=== PATIENT | female | born 1980 | race Caucasian/White ===

== ENCOUNTER → 2016-11-16 | Outpatient (CLI) | payer OTHER ==
--- NOTE | 2016-11-16 10:35 | US ---
November 16, 2016 Dear Michelle Turner NP, Thank you for allowing us to see your patient regarding anatomy. As you know she is a 36 year-old gr avida 2, para 0010. Her due date is 04/08/17 which is based on . Her current gestational age base d on this dating is 19 weeks 2 days. She had normal NIPT. Number of fetuses: 1 Placental location: posterior covering the os and slightly over this consistent with PREVIA Cord Insertion: Central presentation: vertex Cervix: 4.8 cm MVP: 5.8 cm The adnexa were evaluated. No pathology was seen. Right ovary not seen Left ovary not seen Measurements: Biparietal diameter: 48 mm 20 weeks, 4 days Head circumference: 168 mm 19 weeks, 4 days Abdominal circumference: 142 mm 19 weeks, 4 days Femur length: 30 mm 19 weeks, 3 days Humerus length: 30 mm 20 weeks, 1 days Transcerebellar diameter: 20 mm 19 weeks, 4 days Average ultrasound age: 19 weeks, 6 days Estimated weight: 296 gm weight percentile: 58 % ANATOMY Upper extremities: Normal Lower extremities: Normal Supratentorial brain: Normal Lateral ventricle: 5.5 mm Posterior fossa: Normal Cisterna Magna: 3.8 mm Spine: Normal Nuchal fold: 3.6 mm Face: Normal nose, lip, profile, alveolar ridge Heart: Normal rate, rhythm, axis, 4 chamber view, LVOT, RVOT, IVS AA view was suboptimal Stomach: Normal Diaphragm Normal Umbilical cord insertion: Normal Right kidney: Normal Left kidney: Normal Bladder: Normal Number of cord vessels: Three. Impression: This is a 36 year-old, 2, para 0010 at 19 weeks, 2 days gestation. 1. SIUP with biometry cw gestational age of 19 weeks. NL MVP. No anatomic abnormalities noted. 2. Second trimester previa- I reviewed that we should reassess this finding at 24 weeks. At this ti me, I did not place any restrictions but did review vaginal bleeding precautions. We discussed that if this persists at 24 weeks, pelvic rest and travel restrictions will be recommended. We reviewed th at if it does not resolve, delivery by is recommended no later than 37 weeks. Thank you for allowing me to see your patient. Approximately 15 minutes was spent with the patient a nd 15 was spent discussing her issues. Luz Slaughter MD Diagnosis Division of Maternal Medicine Department of Obstetrics and Gynecology [facility]
--- NOTE | 2016-11-16 18:17 | US ---
Second Trimester Obstetrical Sonography Clinical History: 36-year-old female presenting for routine anatomic screening and biometry. Technique: A curvilinear 5 MHz transducer was used to sonographically evaluate the fetus and the tess centa. M-mode Doppler was used. Supplementary endovaginal pelvic sonography of the maternal cervix an d positioning of the placenta was performed with color Doppler utilized. Cine clips were stored on [facility]. Dr. Luz Slaughter was present. Comparison Study: First trimester obstetrical sonography, dated October 03, 2016. LMP: July 04, 2016, indicating an age of 19 weeks 2 days, and an estimated date of delivery of April 10, 2017. Findings: Again, there is a single viable intrauterine gestation, with the fetus cephalic in present ation. The placenta is posteriorly-situated, although there is now placenta previa. The maternal cerv ical length is normal, measuring 4.8 cm. The amniotic fluid volume is appropriate with a maximal vert ical pocket of 5.8 cm. The heart rate is 152 beats per minute. There is a three-vessel cord wit h a normal central cord insertion. The maternal ovaries are not identified. A anatomic survey reveals a normal appearance to the supra- and infratentorial structures. The lateral ventricular diameter is 5.5 mm, the cisterna magna is 3.8 mm, and the nuchal fold is 3.6 mm. The spine appears normal. The nasal-labial anatomy and the alveolar ridge are normal. There is a four-chambered heart, with right and left ventricular outflow tracts and interventricular septum. T he diaphragm is intact. The stomach, right and left kidneys, urinary bladder, and upper and lower ext remities are identified. biometry is as follows: The biparietal diameter is 48 mm, corresponding to an age of 20 weeks 4 days +/- 1 week 6 days, which is at the 90th percentile. The head circumference is 168 mm, corresponding to an age of 19 weeks 4 days +/- 1 week 4 days, which is at the 53rd percentile. The abdominal circumference is 142 mm, corresponding to an age of 19 weeks 4 days +/- 2 weeks 1 day, which is at the 55th percentile. The femur length is 30 mm, corresponding to an age of 19 weeks 3 days +/- 1 week 6 days, which is at the 44th percentile. The humeral length is 30 mm, corresponding to an age of 20 weeks 1 day, and the transcerebellar diame ter is 20 mm, corresponding to an age of 19 weeks 4 days +/- 1 week 0 days, for a composite gestation al age of 19 weeks 6 days, which is concordant with menstrual dating and demonstrating appropriate in terval growth since the previous study. The estimated weight is 296 grams +/- 43 grams, which is 10 ounces +/- 2 ounces, which is at e 58th percentile. The head circumference to abdominal circumference ratio is normal, measuring 1.19. The femur length t o biparietal diameter ratio is 63%, and the femur length to abdominal circumference ratio is 21%. Impression: There is a single viable intrauterine gestation with development of placenta previa, but otherwise no overt structural anomaly, having biometry concordant with menstrual dating and al so demonstrating appropriate interval growth since October 03, 2016. The amniotic fluid volume is ap propriate. Recommendation: Reassessment of the second trimester placenta previa at the 24-week gestational age. Please also refer to Dr. Slaughter's separate assessments and specific recommendations for future follow up.
== END ==
LOC: FIMAGING 08:12
PROVIDERS: ATTEND Midwife
DX: O44.22 Partial placenta previa NOS or without hemorrhage, second trimester (principal); Z3A.19 19 weeks gestation of pregnancy

== ENCOUNTER → 2016-12-16 | Outpatient (CLI) | payer OTHER ==
--- NOTE | 2016-12-16 10:30 | US ---
December 16, 2016 Dear Ms. Kasandra Squires, Thank you for requesting consultation and a follow up ultrasound for your patient, Mrs. Elza hanna. As you know, Emily is a 36 year old G 2, P 0010 . Her due date is 04/08/17 by LMP and 6 week ultrasound. Her current gestational age based on this dating is is 23 weeks 6 days. She is se en today for a follow up assessment of growth and to evaluate the placenta secondary to previa. She did report spotting after intercourse within this past week. No other bleeding or pain noted. ULTRASOUND Number of fetuses: 1 Placental location: Persistent posterior placenta previa with a small portion of the placenta extend ing over the cervix os. There is some fluid in the cervical canal which may be mucous or old blood. presentation: Cephalic Heart Rate: 143 bpm Cervix: 4.2 cm viewed transvaginally. There is no evidence of cervical insufficiency. Maximum Vertical Pocket: 7.1 cm Measurements: Biparietal diameter: 67 mm 25 weeks, 0 days Head circumference: 226 mm 24 weeks, 5 days Abdominal circumference: 209 mm 25 weeks, 4 days Femur length: 43 mm 24 weeks, 0 days Humerus length: 41 mm 25 weeks, 1 days Transcerebellar diameter: 28 mm 24 weeks, 5 days Average age by ultrasound: 24 weeks, 6 days Estimated weight: 739 gm weight percentile: 85 % ANATOMY anatomy was previously assessed. Today the following structures were visualized and appeared n ormal: Lateral ventricle, cavum septum pellucidum, cerebellum, profile, four-chamber view of t he heart, aortic arch, stomach, bilateral kidneys, bladder, and views of the lip and nose area. IMPRESSION: 1. Intrauterine at 23 weeks, 6 days; NINO of 04/08/17. 2. growth is appropriate size for dates. 3. anatomy was previously assessed and today's ultrasound continues to provide reassurance of normal appearing anatomy. 4. Normal cervical length at 4.2 cm 5. Posterior placenta previa with episode of spotting after intercourse RECOMMENDATIONS: I was pleased to review today's ultrasound with your patient. I reassured her that growth is normal at the 85 %ile for this gestational age. The amniotic fluid volume is normal. We performed a review of the anatomy which was reassuring in that no overt abnormalities were noted. A transvaginal ultrasound was performed to better evaluate the placenta and cervix. The cervix is lo ng at 4.2 cm without evidence of insufficiency. There is some fluid in the cervical canal which may be old blood or the typical cervical mucous. The placenta remains a previa in the second trimester. Given her history of bleeding, I restricted intercourse and recommended pelvic rest. She may remain active, but limit weight bearing/Valsalva activities. I recommend: 1. Follow up between 30-32 weeks for growth and placenta reevaluation. Thank you for allowing us the opportunity to evaluate your patient. Should you have any further ques tions or concerns please do not hesitate to contact me. Approximately 15 minutes were spent with the patient and 10 minutes were spent in face to face consu ltation. Alberta Landers MD Staff Nurse Maternal Medicine Diagnosis Department of Obstetrics & Gynecology [facility], [place]
--- NOTE | 2016-12-16 11:14 | US ---
Follow Up Obstetrical Sonography Clinical History: 36-year-old female with a prior history of placenta previa and some recent post-coi ravinder spotting. Also assess growth parameters. Technique: A curvilinear 5 MHz transducer was used to sonographically evaluate the fetus and placenta . M-mode Doppler is used. Dr. Alberta Landers is present. Supplementary endovaginal pelvic sonography of the maternal cervix was also performed. A cine clip through the four-chambered heart was acquired. Comparison Study: Obstetrical sonography, dated November 16, 2016. LMP: July 02, 2016, indicating an age of 23 weeks 6 days, and an estimated date of delivery of April 08, 2017. Findings: Again, there is a single viable intrauterine gestation. The fetus is vertex in presentation . The amniotic fluid volume is appropriate, with a maximal vertical pocket of 7.1 cm. The heart rate is 143 bpm. There is a persistent placenta previa seen posteriorly with extension over the cerv ical os, and the maternal cervical length is 4.2 cm, measured endovaginally. There is a small amount of complex fluid seen within the endocervical canal. A anatomic survey has been performed in the past. On today's study, the visualized supra- and i nfratentorial structures are normal. The cisterna magna is 4.1 mm and the lateral ventricular diamete r is 4.7 mm. The sagittal facial profile is normal. A 4 chambered heart, interventricular septum, lef t ventricular outflow tract, three-vessel view, and aortic arch appear normal. The stomach, right and left kidneys, and urinary bladder are seen. biometry is as follows: The biparietal diameter is 61 mm, corresponding to an age of 25 weeks 0 days +/- 2 weeks 2 days, whic h is at the 82nd percentile. The head circumference is 226 mm, corresponding to an age of 24 weeks 5 days +/- 2 weeks 1 day, which is at the 63rd percentile. The abdominal circumference is 209 mm corresponding to an age of 25 weeks 4 days +/- 2 weeks 2 days, which is at the 87th percentile. The femur length is 43 mm corresponding to an age of 24 weeks 0 days +/- 2 weeks 1 day, which is at t he 41st percentile. The humeral length is 41 mm corresponding to an age of 25 weeks 1 day, and the transcerebellar diamet er is 28 mm corresponding to an age of 24 weeks 5 days +/- 1 week 1 day for a composite gestational a ge of 24 weeks 6 days. The estimated weight is 739 g +/- 108 g, which is 1 lb. 10 oz. +/- 4 oun joseline, which is at the 85th percentile. The head circumference to abdominal circumference ratio is normal, measuring 1.08. The femur length t o biparietal diameter ratio is 70%, and the femur length to abdominal circumference ratio is 20%. Impression: There is a single viable intrauterine gestation with an appropriate interval growth since November 16, 2016, and evidence of a persistent placenta previa. The amniotic fluid volume is appropri ate. Recommendation: Follow up sonography between 30 and 32 weeks gestation. Please also refer to Dr. Landers's separate assessments and specific recommendations.
== END ==
LOC: FIMAGING 09:12
PROVIDERS: ATTEND Midwife
DX: O44.02 Complete placenta previa NOS or without hemorrhage, second trimester (principal); Z3A.23 23 weeks gestation of pregnancy

== ENCOUNTER → 2017-02-01 | Outpatient (CLI) | payer OTHER | LOC: FIMAGING 09:04 | PROVIDERS: ATTEND Midwife | DX: O44.03 Complete placenta previa NOS or without hemorrhage, third trimester (principal); Z3A.30 30 weeks gestation of pregnancy ==

== ENCOUNTER 2017-02-06 09:50 | Inpatient (IN) | payer OTHER ==
[2017-02-06] MEDS ORDERED: EPSOM SALT 454 GM TP PRN (10:22)
[2017-02-06] MEDS ORDERED: MAGNESIUM SULF IV ONE (10:22)
[2017-02-06] MEDS ORDERED: OXYTOCIN/RINGERS LACTATE 1,000 ML IV PRN (10:22)
[2017-02-06] MEDS ORDERED: LR 1,000 ML IV PRN (10:22)
[2017-02-06] MEDS ORDERED: BETAMETHASONE IM SYRINGE IM ONE ×2 (10:22→10:30)
[2017-02-06] MEDS ORDERED: OLIVE OIL 118 ML BTL MISC PRN (10:22)
[2017-02-06] MEDS ORDERED: CALCIUM GLUC 10% 1 GM/10 ML VIAL IVP PRN (10:22)
[2017-02-06] MEDS ORDERED: TERBUTALINE SULFATE 1 MG/ML VIAL IV PRN (10:22)
[2017-02-06] MEDS ORDERED: WATER IV ONE (10:22)
[2017-02-06] MEDS ORDERED: LIDOCAINE 1% 30 ML SDV SC PRN (10:22)
[2017-02-06] MEDS ORDERED: LR 1,000 ML IV SCH (10:30)
--- NOTE | 2017-02-06 10:31 | PDGENHP ---
History and Physical - Chief Complaint vaginal bleeding - History of Present Illness Pt is a healthy 36 yo at 31w2d by LMP and 6 week US with NINO of . Prior SAB at 8 weeks, no D&C completed. Pt has a known posterior placenta previa, confirmed on most recent ultrasound at 30w4d by MFM. She called this morning with an episode of heavy vaginal bleeding lasting about 3-4 minutes, blood was gushing out while she was sitting on the toilet. No cramping or pain. No leaking fluid as far as she knows. Bleeding has slowed down now. Baby is active. Otherwise uncomplicated . This is the 2nd significant bleed of the : she had a heavier bleeding a few months ago, then spotting a few weeks ago. OB labs notable for Rh pos, antibody neg, GBS+ bacteriuria in 1st trimester, Rubella immune, RPR neg, HbSag Neg, HIV neg, GC/CT neg, 1 hr glucola = 91 s/p tdap and flu vaccines Has not received steroids for lung maturity this History Information - Allergies/Home Medication List Allergies/Adverse Reactions: aspirin Allergy (Verified 10/03/16 07:51) Home Medications: PO 10/03/16 [Last Taken Unknown] I have personally reviewed and updated: family history, medical history, social history, surgical history - Past Medical History no pertinent PMH - Surgical History Reports: no pertinent surgical hx - Family History Positive for: non-pertinent - Social History Smoking Status: Never smoked Alcohol Use: None Drug Use: None Additional social history: , Dmitri Review of Systems ROS: 10pt was reviewed & negative except for what was stated in HPI & below Physical Exam Physical Exam: Gen: alert, awake, NAD Resp: unlabored CV: reg rate Abd: gravid, soft, nontender Ext: no edema SSE: Cervix long/closed. Small amount of mucously dark blood in vault. No active bleeding. Vital signs: BP 117/70, pulse 94 heart rate: Baseline 140, moderate variability, + accels, no decels [place]: irritability, one contraction Bedside TAUS: Posterior previa No e/o abruption Normal fluid, DVP = 4.5 cm Vertex Lab Data & Imaging Review 02/06/17 10:45 Assessment & Plan Assessment: at 31w2d Rh positive Posterior placenta previa with VB#2 Currently hemodynamically stable, no active bleeding, status reassuring No evidence of labor, abruption, PPROM GBS+ UTI in 1st trim, other OB labs WNL Mild thrombocytopenia, no other signs of preeclampsia or DIC Plan: Admit to L&D IV placement, CBC, T&C x 2 units Continuous monitoring x 24 hours BMTZ for lung maturity, first dose now No evidence of need for emergent delivery, will not give magnesium for [employer]PER[employer] at this time. 500 cc LR bolus for uterine irritability, plan continuous toco Clear liquid diet for now, will advance to regular if remains stable No indication for antibiotics at this time Repeat CBC with platelets tomorrow AM. Will also get full chemistry panel s/p Tdap and flu vaccines Anesthesia and providers aware of patient's admission Recommend admission for 48-72 hours of no bleeding at a minimum Discussed indications for delivery: maternal (hemorrhage, signs of abruption, vital sign changes, ROM, labor) or evidence of distress. Delivery would be by for previa. Discussed risks including pain, infection, bleeding, transfusion, injury to other organs, implications for future pregnancies. Discussed goal of regional anesthesia but possibility of need for emergency C/S under general. All questions answered and she agrees to delivery if becomes indicated.
[2017-02-06 11:00] LABS: % IMMATURE GRANULYOCYTES 1.3 % (0.0-1.1); ABSOLUTE IMMATURE GRANULOCYTES 0.08 10^3/uL (0.00-0.10); ADD DIFF? NO; ADD MORPH? NO; ADD SCAN? NO; ATYPICAL LYMPHOCYTE FLAG 0 (0-99); FRAGMENT RBC FLAG 0 (0-99); HEMATOCRIT 34.8 % (38.0-47.0); HEMOGLOBIN 12.3 g/dL (12.6-16.3); LEFT SHIFT FLG 10 (0-99); LIPEMIA HEMOLYSIS FLAG 90 (0-99); MEAN CELL HEMOGLOBIN 30.6 pg (27.9-34.1); MEAN CELL HEMOGLOBIN CONCENTR. 35.3 g/dL (32.4-36.7); MEAN CELL VOLUME 86.6 fL (81.5-99.8); PLATELET CLUMPS FLAG 0 (0-99); PLATELET COUNT 149 10^3/uL (150-400); RED BLOOD CELL COUNT 4.02 10^6/uL (4.18-5.33); RED CELL DISTRIBUTION WIDTH 13.4 % (11.5-15.2)
--- NOTE | 2017-02-06 16:51 | SOAPPROG ---
SOAP Progress Note Assessment/Plan: Assessment: 31w2d with VB and previa Initially bleeding had slowed, now with slight uptick in bleeding, not heavy status remains reassuring Ongoing uterine irritability despite IV fluids No e/o cervical dilation, labor, abruption, mom is hemodynamically stable Plan: Ongoing continuous monitoring Given ongoing bleeding and uterine irritability, recommend to give IV magnesium for neuroprotection (6g bolus followed by 2g/hr x 12 hours). Reviewed with pt this is in the event she needs delivery and is for benefit. May also calm down uterus but that is not primary use. she agrees with plan. Side effects discussed. 02/06/17 16:48 02/06/17 16:52 Subjective: Pt feeling well. Denies any cramping or pain. Initially bleeding had slowed dramatically, now with a slight increase of BRB noted by patient and RN based on pad. Nothing like what happened this morning. No LOF. Objective: Laboratory Results 02/06/17 10:45 112/61, 93 Gen: alert, awake, NAD Abd: gravid, soft, nontender SSE: small amount of blood in vault, mix of bright red and darker blood. Cervix closed. Very slow ooze of bleeding noted. FHR baseline 140, mod [place], + accels, no decels [place]: irritability, intermittent contractions ICD10 Worksheet Patient Problems: Problems Problem Status Onset Placenta previa antepartum in third trimester Acute - ICD10 Problem Qualifiers (1) Placenta previa antepartum in third trimester
[2017-02-06] MEDS ORDERED: ONDANSETRON 4 MG/2 ML VIAL IVP PRN (16:54)
[2017-02-06] MEDS: MAGNESIUM SULF IV SCH ×3 (17:02→17:20)
[2017-02-06] MEDS: WATER IV SCH ×3 (17:02→17:20)
[2017-02-06] MEDS: Mag Sulf 500 ML IV SCH (17:30)
[2017-02-06] MEDS ORDERED: ACETAMINOPHEN 325 MG TAB PO PRN (23:27)
[2017-02-06] MEDS ORDERED: CALCIUM CARBONATE 500 MG CHEWABLE TAB PO PRN (23:28)
[2017-02-07] MEDS ORDERED: MAGNESIUM SULF 20 GM/500 ML BAG IV ONE (03:05)
[2017-02-07] MEDS: Mag Sulf 500 ML IV SCH (04:00)
[2017-02-07 06:01] LABS: % IMMATURE GRANULYOCYTES 1.2 % (0.0-1.1); ABSOLUTE IMMATURE GRANULOCYTES 0.15 10^3/uL (0.00-0.10); ADD DIFF? NO; ADD MORPH? NO; ADD SCAN? NO; ATYPICAL LYMPHOCYTE FLAG 0 (0-99); FRAGMENT RBC FLAG 0 (0-99); HEMATOCRIT 33.4 % (38.0-47.0); HEMOGLOBIN 11.4 g/dL (12.6-16.3); LEFT SHIFT FLG 0 (0-99); LIPEMIA HEMOLYSIS FLAG 90 (0-99); MEAN CELL HEMOGLOBIN 29.8 pg (27.9-34.1); MEAN CELL HEMOGLOBIN CONCENTR. 34.1 g/dL (32.4-36.7); MEAN CELL VOLUME 87.4 fL (81.5-99.8); MEAN PLATELET VOLUME 10.9 fL (8.7-11.7); PLATELET CLUMPS FLAG 0 (0-99); PLATELET COUNT 164 10^3/uL (150-400); RED BLOOD CELL COUNT 3.82 10^6/uL (4.18-5.33); RED CELL DISTRIBUTION WIDTH 13.4 % (11.5-15.2)
[2017-02-07 06:07] LABS: ALANINE AMINOTRANSFERASE 52 IU/L (9-52); ALBUMIN 3.4 g/dL (3.5-5.0); ALKALINE PHOSPHATASE 135 IU/L (38-126); ANION GAP 6 mEq/L (8-16); ASPARTATE AMINOTRANSFERASE 35 IU/L (14-46); BILIRUBIN,TOTAL 0.6 mg/dL (0.1-1.4); CALCIUM 7.5 mg/dL (8.5-10.4); CARBON DIOXIDE 21 mEq/l (22-31); CHLORIDE 105 mEq/L (97-110); CREATININE 0.5 mg/dL (0.6-1.0); GLOMERULAR FILTRATION RATE > 60; GLUCOSE 105 mg/dL (70-100); POTASSIUM 3.9 mEq/L (3.5-5.2); SODIUM 132 mEq/L (134-144); TOTAL PROTEIN 5.9 g/dL (6.3-8.2)
[2017-02-07] MEDS ORDERED: DOCUSATE SODIUM 100 MG CAP PO PRN (06:48)
--- NOTE | 2017-02-07 06:59 | SOAPPROG ---
SOAP Progress Note Assessment/Plan: Assessment: 31w3d with VB and previa Bleeding now stopped status remains reassuring Uterine irritability significantly improved Slight decrease in Hgb. Plts improved. No e/o cervical dilation, labor, abruption, mom is hemodynamically stable Plan: OK to stop continuous monitoring, plan NST TID as long as no bleeding Mag stopped after 12 hours Regular diet SLIV 2nd dose BMZ today Start iron and colace Obs until at least 48 hours no bleeding OK to walk around unit this AM, possibly outside this afternoon if remains stable 02/06/17 16:48 02/06/17 16:52 02/07/17 06:55 02/07/17 07:00 02/07/17 07:02 Subjective: Slept well. Not feeling any contractions or abdominal pain. Bleeding completely stopped, none since about 6:00 PM last night. Baby is a little less active than usual but still moving normally. Objective: Laboratory Results 02/07/17 05:35 02/07/17 05:35 113/59, 88, 99%, 36.9 Gen: NAD, awake, alert Resp: unlabored CV: reg rate Abd: gravid, soft, nontender Ext: no edema FHR baseline 130-140, mod [place], + accels, no decels [place]: mostly quiet overnight, occasional runs of irritability and contractions ICD10 Worksheet Patient Problems: Problems Problem Status Onset Placenta previa antepartum in third trimester Acute - ICD10 Problem Qualifiers (1) Placenta previa antepartum in third trimester
[2017-02-07] MEDS: FERROUS SULFATE 325 MG TAB PO SCH (09:10)
[2017-02-07] MEDS ORDERED: BETAMETHASONE IM SYRINGE IM ONE (11:00)
--- NOTE | 2017-02-07 18:28 | SOAPPROG ---
SOAP Progress Note Assessment/Plan: Assessment: 36 y.o. at 31 weeks with partial previa with spontaneous onset of vaginal bleeding. Patient has been on bedrest with decreased vaginal bleeding. Denies experiencing any cramping at this time. VSS- afebrile NST- reactive- CAT I Plan: Continue to keep patient as inpatient until no bleeding x 48 hours. Patient to remain on pelvic rest and modified bedrest. Second dose of betamethasone administered. Discussed extensively for patient to decrease her activity to short light walking and yoga. Patient is not to run or lift anything heavy. Discussed for patient not to travel outside the immediate area and patient verbalized understanding. 02/07/17 18:25 Subjective: Patient appears comfortable and in no immediate distress. Discussed patient's activity restrictions and patient verbalized understanding. VSS- afebrile. NST- reactive CAT I> Objective: Laboratory Results 02/07/17 05:35 02/07/17 05:35 - Time Spent With Patient Time Spent With Patient: 20 minutes - Pending Discharge Pending Discharge Within 48 Hours: Yes Pending Discharge Date: 02/09/17 Pending Discharge Time: 11:00 Physical Exam - Physical Exam General Appearance: WD/WN, alert, no apparent distress EENT: normal ENT inspection Neck: full range of motion, normal inspection Respiratory: lungs clear Cardiac/Chest: regular rate, rhythm Abdomen: non-tender, soft Pelvic Exam: deferred Rectal: deferred Back: Normal inspection Skin: normal color, warm/dry Extremities: normal range of motion, non-tender Neuro/Psych: alert, normal mood/affect, oriented x 3 ICD10 Worksheet Patient Problems: Problems Problem Status Onset Placenta previa antepartum in third trimester Acute
--- NOTE | 2017-02-08 09:04 | SOAPPROG ---
SOAP Progress Note Assessment/Plan: Assessment: 31w4d with VB and previa Bleeding now stopped x 36 hours status remains reassuring Uterine irritability significantly improved though not completely resolved Hgb stable No e/o cervical dilation, labor, abruption, mom is hemodynamically stable s/p BMZ and Mag Plan: NST TID as long as no bleeding Regular diet SLIV Iron and colace Modified bedrest Plan home tonight after 6:00 PM assuming no further bleeding. Discussed activity restrictions with pt and do not advise to travel outside area. She is aware if she has another bleed we would recommend admission until delivery Subjective: No bleeding overnight. Baby active. She is hoping to go home tonight. No cramping or pain. No LOF. Objective: Laboratory Results 02/07/17 05:35 02/07/17 05:35 Gen: NAD Resp:unlabored CV: reg rate Abd: gravid, soft,nontender Ext: no edema VSS, reviewed in tracevue FHR baseline 150, mod [place], + accel, no decel [place]: irritability, intermittent contraction (not felt by mom) ICD10 Worksheet Patient Problems: Problems Problem Status Onset Placenta previa antepartum in third trimester Acute - ICD10 Problem Qualifiers (1) Placenta previa antepartum in third trimester
[2017-02-08] MEDS: FERROUS SULFATE 325 MG TAB PO SCH (10:35)
--- NOTE | 2017-02-08 21:29 | GDS ---
[f rep st] DISCHARGE SUMMARY ADMISSION DIAGNOSIS: 31 weeks, 2 days gestation with known placenta previa and vaginal bleeding. DISCHARGE DIAGNOSIS: 31 weeks, 4 days gestation, vaginal bleeding resolved. CONSULTS: None. COMPLICATIONS: None. HOSPITAL SUMMARY: The patient is a 36-year-old G2, P0-0-1-0, who presented at 31 weeks, 2 days with vaginal bleeding in with known posterior placenta previa. The bleeding was spontaneous at home when she was using the bathroom. At the time of admission, she had ongoing bleeding that had slowed considerably. She was placed on the heart rate monitor and was found to have reassuring status. Betamethasone was administered for lung maturity as she had not yet received it in this . Her monitoring continued to be reassuring, however, her bleeding though light was ongoing and she had contractions and irritability noted on the tocometer, so the decision was made to proceed with IV magnesium, which was given for neuro protection. She received a 6 gram IV bolus followed by 2g/hr over the course of 12 hours and her uterine contractions and irritability improved and her bleeding stopped. She was taken off the magnesium and was continued to be monitored for 48 hours with no vaginal bleeding. She continued to have reassuring status and was not feeling any contractions, leaking, bleeding or any other worrisome signs. She was discharged in stable condition with strict instructions including pelvic rest and activity modification and to return to the hospital for any further bleeding. Of note, this was her second episode of vaginal bleeding this , so she is aware that a future vaginal bleed would mean that she would be observed as an inpatient for the remainder of the . Her is otherwise uncomplicated and notable only for GBS bacteruria in the first trimester. FOLLOWUP: Dr. Degroot in 1 week in the office as scheduled and repeat ultrasound in 2 weeks to re-evaluate for ongoing previa. DISCHARGE MEDICATIONS: She will continue her home medications which include vitamin, iron, DHA. LABS: Were notable for an admission hemoglobin of 12.3 which dropped on day of hospital 2 to 11.4. She had no further bleeding after that time. She will continue to take iron supplements. /[id number]/MODL MTDD
== END 2017-02-08 18:30 | disposition home or self-care (01) | DRG 781 ==
LOC: FLD 09:50 → OBSVTOIN 09:50
PROVIDERS: ADMIT Obstetrics & Gynecology; ATTEND Obstetrics & Gynecology
DX: O44.13 Complete placenta previa with hemorrhage, third trimester (principal); Z3A.31 31 weeks gestation of pregnancy
CPT/HCPCS: J0610; J0702; J3475

== ENCOUNTER 2017-02-17 20:05 | Inpatient (IN) | payer OTHER ==
[2017-02-17] MEDS ORDERED: ceFAZolin 2 GM/DEXTROSE 100 ML IV ONE (20:26)
[2017-02-17] MEDS ORDERED: LR 500 ML IV ONE (20:26)
[2017-02-17] MEDS ORDERED: EPSOM SALT 454 GM TP PRN (20:27)
[2017-02-17] MEDS ORDERED: OLIVE OIL 118 ML BTL MISC PRN (20:27)
[2017-02-17] MEDS ORDERED: LIDOCAINE 1% 30 ML SDV SC PRN (20:27)
[2017-02-17] MEDS ORDERED: OXYTOCIN/RINGERS LACTATE 1,000 ML IV PRN (20:27)
[2017-02-17] MEDS ORDERED: TERBUTALINE SULFATE 1 MG/ML VIAL IV PRN (20:27)
[2017-02-17] MEDS ORDERED: LR 1,000 ML IV PRN (20:27)
[2017-02-17] MEDS ORDERED: MISOPROSTOL 200 MCG TAB ONE (20:30)
[2017-02-17] MEDS ORDERED: ALBUMIN 5% 500 ML BOTTLE IV ONE (20:37)
[2017-02-17 20:42] LABS: % IMMATURE GRANULYOCYTES 1.4 % (0.0-1.1); ABSOLUTE IMMATURE GRANULOCYTES 0.14 10^3/uL (0.00-0.10); ADD DIFF? NO; ADD MORPH? NO; ADD SCAN? NO; ATYPICAL LYMPHOCYTE FLAG 10 (0-99); FRAGMENT RBC FLAG 0 (0-99); HEMATOCRIT 34.5 % (38.0-47.0); HEMOGLOBIN 11.6 g/dL (12.6-16.3); LEFT SHIFT FLG 10 (0-99); LIPEMIA HEMOLYSIS FLAG 80 (0-99); MEAN CELL HEMOGLOBIN 29.6 pg (27.9-34.1); MEAN CELL HEMOGLOBIN CONCENTR. 33.6 g/dL (32.4-36.7); MEAN PLATELET VOLUME 11.3 fL (8.7-11.7); PLATELET CLUMPS FLAG 20 (0-99); PLATELET COUNT 197 10^3/uL (150-400); RED BLOOD CELL COUNT 3.92 10^6/uL (4.18-5.33); RED CELL DISTRIBUTION WIDTH 13.9 % (11.5-15.2)
[2017-02-17] MEDS ORDERED: morphINE PF 5 MG/10 ML INJ ONE (20:51)
[2017-02-17] MEDS ORDERED: fentaNYL 100 MCG/2 ML INJ ONE (20:52)
[2017-02-17] MEDS ORDERED: MISOPROSTOL 200 MCG TAB PR ONE (21:03)
[2017-02-17] MEDS ORDERED: METHYLERGONOVINE MAL 0.2 MG/ML INJ IM ONE (21:03)
[2017-02-17] MEDS ORDERED: HEMABATE 250 MCG/1 ML AMP IM ONE (21:03)
--- NOTE | 2017-02-17 21:11 | GHP ---
[f rep st] PREOP HISTORY AND PHYSICAL DATE OF ADMISSION: 02/17/2017 CHIEF COMPLAINT: Heavy vaginal bleeding and syncope x2. HISTORY OF PRESENT ILLNESS: This is a 36-year-old, G1, P0, who is roughly 32 weeks gestation with k nown placenta previa, who presents with heavy vaginal bleeding that started approximately 1-2 hours ago. The patient is 32 and 6/7 weeks gestation. The patient has a known placenta previa. She has had 2 previous episodes of vaginal bleeding. Her last ultrasound was on . The fetus was paula uring at 1712 grams. She has received 2 doses of betamethasone. Upon presentation to the [facility], the patient was syncopal and hypotensive. PHYSICAL EXAMINATION: VITAL SIGNS: Her blood pressure was 81/55, pulse 88. GENERAL: She is uncom fortable with her contractions. Her abdomen is gravid. On speculum exam, she has approximately 200 EBL of clot and she is actively bleeding from her cervix. heart tones are in the 160s with m oderate variability, and she is ibis every 2 minutes. Her hematocrit at this point is 34%. Her discharge hematocrit on February 07 was 33%. I discussed with the patient my concern for her significant vaginal bleeding, her hypotension and he r contractions. I recommend proceeding to delivery via primary low transverse section for her hemorrhage and hypotension. We will repeat a CBC in the OR and discuss potential blood transfus ion of the patient. The patient's blood type is pending at this time. The patient understands thes e risks and agrees to the procedure. /[id number]/MODL
[2017-02-17] MEDS ORDERED: ONDANSETRON 4 MG/2 ML VIAL ONE (21:38)
[2017-02-17] MEDS ORDERED: OXYTOCIN 100 UNITS/10 ML VIAL ONE (21:39)
[2017-02-17] MEDS ORDERED: SIMETHICONE 80 MG TAB CHEW PO PRN (21:49)
[2017-02-17] MEDS ORDERED: ACETAMINOPHEN 325 MG TAB PO PRN (21:49)
[2017-02-17] MEDS ORDERED: PHENYLEPHRINE HCL 100 MCG/ML SYR ONE (21:51)
--- NOTE | 2017-02-17 21:55 | OBPROC ---
- Delivery Pre-op Diagnoses: IUP @ 32 /, hemorrhage, posterior previa Post-op Diagnoses: same Procedure: Primary, Low Transverse Surgeon: Tamika Garcia Hot Header Operator: Lesly Frost Anesthesiologist: Danie Ratliff Anesthesia: Spinal Complications: None Findings: viable male , blood clot of 50 ml at uterine incision, copious vaginal bleeding at time of surgery Specimen(s)/Path: Placenta EBL: 1500 ml (800 ml with surgery, 700 ml prior) - Toponas Info A Delivery Date: 02/17/17 Sex of Infant: Male
[2017-02-17] MEDS: LR 1,000 ML IV SCH ×2 (21:58→21:59)
[2017-02-17 22:27] LABS: CORD BLOOD PCO2 57.6 mmHg (37-60); PH ARTERIAL CORD BLOOD 7.25 (7.10-7.37)
[2017-02-17 22:30] LABS: PH VENOUS CORD BLOOD 7.28 (7.20-7.42)
--- NOTE | 2017-02-17 22:38 | GOP ---
[f rep st] OPERATIVE REPORT DATE OF OPERATION: 02/17/2017 SURGEON: Tamika Herzog MD ANESTHESIA: Spinal. PREOPERATIVE DIAGNOSIS: Intrauterine at 32 and 6/7 weeks' gestation with posterior placenta previa and hemorrhage. POSTOPERATIVE DIAGNOSIS: Intrauterine at 32 and 6/7 weeks' gestation with posterior placenta previa and hemorrhage. PROCEDURE PERFORMED: primary low transverse section FINDINGS: Viable male . Normal uterus, Fallopian tubes, and ovaries. ESTIMATED BLOOD LOSS: 1500 mL total with 700 mL loss prior to the surgery and 800 during surgery. INDICATIONS: The patient is a 36-year-old female, who had a known placenta previa and noticed vaginal bleeding. She has had 2 previous episodes of vaginal bleeding. Began to have heavy vaginal bleeding and cramping and presented to Labor and Delivery. At the time of presentation, the patient had probably lost approximately 500-600 mL of blood and lost another 100 mL of blood during preparation. Recommended the patient to proceed to primary section secondary to her active vaginal bleeding to which she agreed. DESCRIPTION OF PROCEDURE: The patient was taken to the operating room. She was prepped and draped in normal sterile fashion in the dorsal supine position with a leftward tilt. The patient received 2 g of Ancef. A surgical time-out was performed verifying the patient's name, date of , planned procedure, and site. A Pfannenstiel skin incision was made with a scalpel and carried through to the underlying fascia. The fascia was incised in the midline and extended laterally. The superior aspect of the fascia was grasped with a Susanne clamp. The rectus muscles were dissected off bluntly and with the Bovie cautery. The inferior aspect of the fascia was grasped with a Susanne clamp. The rectus muscles were dissected off bluntly and with the Bovie cautery. The peritoneum was identified and entered in bluntly. The peritoneum was divided. The vesicouterine peritoneum was incised with Metzenbaum scissors, and the bladder flap was created. The bladder blade was replaced. The uterus was incised with a scalpel, and the uterine incision extended laterally with the bandage scissors. The was delivered. The cord was clamped and cut. The infant was handed to the waiting nurse practitioner. Cord blood was obtained. Cord gases were obtained. The placenta was delivered spontaneously. The uterus was exteriorized and cleared of all clots and debris. The uterine incision was reapproximated with 0 Monocryl in a running, locked fashion in 2 layers. The gutters were cleared of all clots and debris. The uterus was returned to the abdomen. There was noted to be some bleeding at the aspect of the left uterine incision which was made hemostatic with 0 Vicryl. The subfascial spaces were inspected and noted to be hemostatic. The fascia was reapproximated with 0 Vicryl in a running fashion. The subcutaneous tissue was irrigated and closed with 3-0 Vicryl, and the skin was closed with 4- 0 Monocryl. All counts were correct x2.February 17, 2017 PROCEDURE PERFORMED: Primary low transverse section. SURGEON: Dr. Tamika Herzog. LOOPER OPERATOR: MADY Baires. COMPLICATIONS: None. OUTCOME: Stable to recovery room. /[id number]/MODL MTDD
[2017-02-17] MEDS ORDERED: PHENYLEPHRINE HCL 100 MCG/ML SYR IVP PRN (23:35)
[2017-02-17] MEDS ORDERED: MEPERIDINE 25 MG/ML SYR IVP PRN (23:35)
[2017-02-17] MEDS ORDERED: ONDANSETRON 4 MG/2 ML VIAL IVP PRN (23:35)
[2017-02-17] MEDS ORDERED: NALOXONE HCL 0.4 MG/ML INJ IVP PRN (23:35)
--- NOTE | 2017-02-17 23:42 | PREANESOB ---
Obstetric Pre-Anesthesia Info - General Info Proposed Procedure: Urgent C Section for bleeding placenta previa. : 3 Para: 0 WBD: 32 - Info Status: Premature Monitors: External FHR Baseline (bpm): 150 FHR Pattern: Reassuring - Labor Status Section History: Primary Indications for Current Section: Placenta Previa Labor Epidural: No Anesthesia ROS: No anesthesia. Allergies/Adverse Reactions: Allergy/AdvReac Type Severity Reaction Status Date / Time aspirin Allergy Verified 10/03/16 07:51 ibuprofen Allergy Verified 02/06/17 19:41 oyster extract Allergy Verified 02/06/17 19:42 Home Medications: Medication Instructions Recorded 1 tab PO DAILY 10/03/16 Dha 10 mg PO DAILY 02/06/17 IRON 25 mg PO EVERY OTHER DAY 02/06/17 Magnesium 200 mg PO DAILY 02/06/17 Vitamin B-12 1 tab PO DAILY 02/06/17 Vitamin D3 0.5 mg PO DAILY 02/06/17 Visit Medications: Generic Name Dose Route Start Last Admin Trade Name Freq PRN Reason Stop Dose Admin Acetaminophen 325 - 650 mg 02/17/17 21:49 Tylenol PO 08/16/17 21:48 Q3HRS PRN Pain, Mild Hydrocodone Bitart/Acetaminophen 1 - 2 tab 02/17/17 21:49 [place] 5/325 PO 02/27/17 21:48 Q4HRS PRN Pain, Moderate Diphenhydramine HCl 25 - 50 mg 02/17/17 23:35 Benadryl Injection IVP 08/16/17 23:34 Q6HRS PRN Itching Docusate Sodium 100 mg 02/17/17 21:49 Colace PO 08/16/17 21:48 BID PRN Constipation Lactated Ringer's 1,000 mls @ 125 mls/hr 02/17/17 20:30 02/17/17 21:59 Lr IV 08/16/17 20:29 1,000 mls CONT ARNOLD Administration Lactated Ringer's 1,000 mls @ 0 mls/hr 02/17/17 20:27 Lr IV 08/16/17 20:26 PRN PRN SEE PROTOCOL CONDITIONS Protocol Per Protocol Oxytocin/Lactated Ringer's 1,000 mls @ 150 mls/hr 02/17/17 20:27 Pitocin 20 Units/Lr (Premix) IV PRN PRN Post- bleeding Lidocaine HCl 30 ml 02/17/17 20:27 Lidocaine Hcl 1% SC 08/16/17 20:26 ONCE PRN Episiotomy Magnesium Sulfate 454 gm 02/17/17 20:27 Epsom Salt TP 08/16/17 20:26 PRN PRN perineal discomfort Meperidine HCl 12.5 - 25 mg 02/17/17 23:35 Demerol 25 Mg/Ml Syringe IVP 02/18/17 00:35 Q10M PRN shivering/rigors Naloxone HCl 0.4 mg 02/17/17 23:35 Narcan IVP 02/18/17 23:38 PRN PRN respiratory depression Woodbine Oil 118 ml 02/17/17 20:27 Sweet Oil MISC 08/16/17 20:26 ONCE PRN preneal massage Ondansetron HCl 4 mg 02/17/17 23:35 Zofran IVP 08/16/17 23:34 Q4HRS PRN Nausea/Vomiting, Can't Take PO Simethicone 80 mg 02/17/17 21:49 Mylicon PO 08/16/17 21:48 .TIDMEALS AND HS PRN Gas Terbutaline Sulfate 0.25 mg 02/17/17 20:27 Brethine IV 08/16/17 20:26 ONCE PRN Tachysystole Discontinued Medications Generic Name Dose Route Start Last Admin Trade Name Freq PRN Reason Stop Dose Admin Albumin Human Confirm 02/17/17 20:37 Alburx 5 Administered 02/17/17 20:38 Dose 500 ml IV .STK-MED ONE Carboprost Tromethamine 250 mcg 02/17/17 21:03 Hemabate IM 02/17/17 21:04 ONCE ONE Fentanyl Confirm 02/17/17 20:52 Sublimaze Administered 02/17/17 20:53 Dose 100 mcg .ROUTE .STK-MED ONE Cefazolin Sodium/Dextrose 100 mls @ 200 mls/hr 02/17/17 20:26 02/17/17 20:56 Ancef 2 Gm (Premix) IV 02/17/17 20:55 100 mls ONCALL ONE Administration Protocol Lactated Ringer's 500 mls @ 0 mls/hr 02/17/17 20:26 Lr IV 02/17/17 20:27 ONCE ONE As Directed Methylergonovine Maleate 0.2 mg 02/17/17 21:03 02/17/17 21:35 Methergine IM 02/17/17 21:04 0.2 mg ONCE ONE Administration Misoprostol Confirm 02/17/17 20:30 Cytotec Administered 02/17/17 20:31 Dose 1,000 mcg .ROUTE .STK-MED ONE Misoprostol 800 mcg 02/17/17 21:03 02/17/17 22:05 Cytotec NM 02/17/17 21:04 800 mcg Q6H ONE Administration Morphine Sulfate Confirm 02/17/17 20:51 Morphine Pf 5 Mg/10 Ml Administered 02/17/17 20:52 Dose 5 mg .ROUTE .STK-MED ONE Ondansetron HCl Confirm 02/17/17 21:38 Zofran Administered 02/17/17 21:39 Dose 8 mg .ROUTE .STK-MED ONE Oxytocin Confirm 02/17/17 21:39 Pitocin Administered 02/17/17 21:40 Dose 100 units .ROUTE .STK-MED ONE Phenylephrine HCl Confirm 02/17/17 21:51 Dae-Synephrine Administered 02/17/17 21:52 Dose 1,000 mcg .ROUTE .STK-MED ONE - Anesthesia History Response to Local Anesthetics: Normal Family Anesthesia History: Negative - Social History Substance Use/Abuse: Denies - Focused Exam Blood Pressure: 81/55 Heart Rate: 88 Height/Weight (Nursing): Height 154.94 cm Weight 73.028 kg Weight: 73.028 kg Physical Exam: Vaginal bleeding. ASA Status: II Labs: 02/17/17 20:20 Patient ABO/Rh O POSITIVE 02/17/17 20:20 - Plan Anesthetic Plan: SAB Consent Signed and on Chart: Yes Patient/Guardian Understands and Agrees to Plan: Yes
--- NOTE | 2017-02-17 23:49 | POSTANESTH ---
Post Anesthetic Evaluation Cardiovascular Status: Normal, Stable Respiratory Status: Normal, Stable, Similar to Pre-op Cond. Level of Consciousness/Mental Status: Can Participate in Eval, Alert and Oriented Pain Control: Adequate, Prn Tx Ordered Nausea/Vomiting Control: Adequate, Prn Tx Ordered Complications Possibly Related to Anesthesia: None Noted (Tolerated spinal well , BP treated with phenylephrine and IV fluid, comfortable for surgery, to PACU, no pain or nausea.)
[2017-02-18 06:31] LABS: % IMMATURE GRANULYOCYTES 0.8 % (0.0-1.1); ADD DIFF? NO; ADD MORPH? NO; ADD SCAN? NO; ATYPICAL LYMPHOCYTE FLAG 0 (0-99); FRAGMENT RBC FLAG 0 (0-99); HEMATOCRIT 23.8 % (38.0-47.0); HEMOGLOBIN 8.1 g/dL (12.6-16.3); LEFT SHIFT FLG 0 (0-99); LIPEMIA HEMOLYSIS FLAG 90 (0-99); MEAN CELL HEMOGLOBIN 29.7 pg (27.9-34.1); MEAN CELL VOLUME 87.2 fL (81.5-99.8); PLATELET CLUMPS FLAG 0 (0-99); PLATELET COUNT 135 10^3/uL (150-400); RED BLOOD CELL COUNT 2.73 10^6/uL (4.18-5.33); RED CELL DISTRIBUTION WIDTH 13.7 % (11.5-15.2)
--- NOTE | 2017-02-18 08:57 | SOAPPROG ---
SOAP Progress Note Assessment/Plan: Assessment: 36 y.o. delivered via primary C/S for increased bleeding due to placental previa at 33 5/7 weeks. POD #1. Plan: Routine / post-op orders. consult. Discontinue carlos catheter, IV hep lock, plexi-pulse stocking and abdominal bandage. Encourage ambulation. 02/18/17 08:54 Subjective: Reports recovering well with good pain control and minimal vaginal bleeding. Incision CDI. Eating and drinking without nausea or vomiting. Appropriate mood with good support system. Objective: Vital Signs Temp Pulse Resp BP Pulse Ox 37.2 C 79 16 96/59 L 94 02/18/17 07:18 02/18/17 07:18 02/18/17 07:18 02/18/17 07:18 02/18/17 07:18 Laboratory Results 02/18/17 06:21 02/17/17 02/18/17 02/19/17 05:59 05:59 05:59 Intake Total 6000 Output Total 2742 Balance 3258 - Time Spent With Patient Time Spent With Patient: 20 minutes - Pending Discharge Pending Discharge Within 24 Hours: No Pending Discharge Within 48 Hours: No Pending Discharge Date: 02/20/17 Physical Exam - Physical Exam General Appearance: WD/WN, alert, no apparent distress EENT: normal ENT inspection Neck: non-tender, full range of motion Respiratory: lungs clear, normal breath sounds Cardiac/Chest: regular rate, rhythm Abdomen: non-tender, soft Pelvic Exam: normal external exam Rectal: deferred Back: Normal inspection Skin: normal color, warm/dry Extremities: non-tender, normal inspection Neuro/Psych: alert, normal mood/affect, oriented x 3 ICD10 Worksheet Patient Problems: Problems Problem Status Onset Hemorrhage affecting in third trimester Acute Placenta previa antepartum in third trimester Acute
[2017-02-18] MEDS: HYDROCODONE/APAP 5/325 TAB PO PRN ×2 (15:13→20:08)
[2017-02-18] MEDS: IRON POLYSAC/IRON HEME 28 MG TAB PO SCH ×2 (19:06→21:42)
[2017-02-18] MEDS: DOCUSATE SODIUM 100 MG CAP PO PRN (20:12)
[2017-02-19] MEDS: HYDROCODONE/APAP 5/325 TAB PO PRN ×6 (00:14→21:17)
[2017-02-19] MEDS: DOCUSATE SODIUM 100 MG CAP PO PRN ×2 (08:39→21:16)
[2017-02-19] MEDS: IRON POLYSAC/IRON HEME 28 MG TAB PO SCH ×2 (08:39→21:16)
--- NOTE | 2017-02-19 10:48 | SOAPPROG ---
SOAP Progress Note Assessment/Plan: Assessment: POD#2 s/p emergent pLTCS at 32 weeks for VB with placenta previa EBL total 1500 ml (prior to and during procedure). Hct appropriate at 23.8, pt has normal VS and no symptomatic anemia Recovering well Rh pos, rub imm Plan: Abd binder Routine care Continue pumping Discussed discharge to [facility] on POD#3-4 02/19/17 10:47 Subjective: Feels a lot better today, got a good night's sleep, feeling calm and settled. Had 1 ml of colostrum! will keep pumping. Hoping baby will be off CPAP so she can hold him soon. No heavy bleeding. Up and walking to bathroom. Passing flatus , no BM yet. Regular diet. Pain well controlled with motrin and norco. Would like to try binder Objective: Vital Signs Temp Pulse Resp BP Pulse Ox 36.6 C 74 16 98/57 L 95 02/19/17 08:00 02/19/17 08:00 02/19/17 08:00 02/19/17 08:00 02/19/17 08:00 Laboratory Results 02/18/17 06:21 02/18/17 02/19/17 02/20/17 05:59 05:59 05:59 Intake Total 6000 1500 Output Total 2742 2850 Balance 3258 -1350 Gen: NAD Resp: unlabored CV: reg rate Abd: appropriately distended, appropriately tender, soft Incision: c/d/i with steri strips Ext: trace edema ICD10 Worksheet Patient Problems: Problems Problem Status Onset Hemorrhage affecting in third trimester Acute Placenta previa antepartum in third trimester Acute
[2017-02-20] MEDS: HYDROCODONE/APAP 5/325 TAB PO PRN ×6 (00:21→23:00)
[2017-02-20] MEDS: DOCUSATE SODIUM 100 MG CAP PO PRN ×2 (08:38→19:39)
[2017-02-20] MEDS: IRON POLYSAC/IRON HEME 28 MG TAB PO SCH ×2 (08:38→19:39)
--- NOTE | 2017-02-20 10:31 | SOAPPROG ---
SOAP Progress Note Assessment/Plan: Assessment: POD#3 s/p emergent pLTCS at 32 weeks for VB with placenta previa EBL total 1500 ml (prior to and during procedure). Hct appropriate at 23.8, pt has normal VS and no symptomatic anemia Recovering well Rh pos, rub imm s/p tdap Plan: Bowel regimen Routine postop care Discharge to [facility] on POD#4 02/19/17 10:47 02/20/17 10:31 Subjective: No BM, wants to try milk of mas as prune juice and coffee didn't help. Otherwise feeling well, and milk is coming in! Objective: Vital Signs Temp Pulse Resp BP Pulse Ox 36.9 C 78 18 104/65 96 02/20/17 08:00 02/20/17 08:00 02/20/17 08:00 02/20/17 08:00 02/20/17 08:00 Laboratory Results 02/18/17 06:21 02/19/17 02/20/17 02/21/17 05:59 05:59 05:59 Intake Total 1500 Output Total 2850 Balance -1350 Gen: NAD Breasts: soft Resp: unlabored CV: RRR Abd: soft, appropriately tender, nondistended Incision: c/d/i Ext: no edema ICD10 Worksheet Patient Problems: Problems Problem Status Onset Hemorrhage affecting in third trimester Acute Placenta previa antepartum in third trimester Acute
[2017-02-20] MEDS ORDERED: POLYETHYLENE GLYCOL 3350 17 GM PKT PO PRN (10:32)
[2017-02-20] MEDS ORDERED: LACTULOSE 20 GM/30 ML UDCUP PO PRN (10:32)
[2017-02-20] MEDS ORDERED: MAGNESIUM HYDROXIDE 30 ML UDCUP PO PRN (10:32)
[2017-02-20] MEDS ORDERED: BISACODYL 10 MG SUPP PR PRN (10:32)
[2017-02-20 20:14] VITALS: O2SAT 99
[2017-02-21] MEDS: HYDROCODONE/APAP 5/325 TAB PO PRN ×3 (05:04→13:29)
--- NOTE | 2017-02-21 08:29 | OBGCSDC ---
General Delivery Information - General Info : 3 Para: 1 Delivery Date: 02/17/17 Delivery Time: 21:28 Admission Date: 02/17/17 Labs: Patient ABO/Rh O POSITIVE 02/17/17 20:20 Hct 23.8 % (38.0-47.0) L D 02/18/17 06:21 - [place] Info Infant A Sex of Infant: Male Score (1 Min): 7 Score (5 Min): 9 - Delivery IUP (Weeks): 33 4/7 Number of Prior Sections: 0 Indications for Current Section: Placenta Previa Procedures: LTCS Intra-op Complications: None EBL: 1500 ml (800 ml with surgery, 700 ml prior) Anesthesia: Spinal Discharge Information - Discharge Information Discharge Medications: Iron, Vitamins, Vicodin Complications: placental previa Condition: Good Instruction/Follow Up: Two Weeks, Six Weeks Discharge Physician/CNM: Michelle Turner Discharge Date: 02/21/17 Dictated: No
[2017-02-21] MEDS: IRON POLYSAC/IRON HEME 28 MG TAB PO SCH (09:01)
[2017-02-21 14:14] VITALS: BP 114/69; PULSE 80; RESP 18; TEMP 97.2
== END 2017-02-21 13:30 | disposition home or self-care (01) | DRG 765 ==
LOC: FLD 20:05 → FOB 02-18 00:30
PROVIDERS: ADMIT Obstetrics & Gynecology; ATTEND Obstetrics & Gynecology
PROC: 10D00Z1 Extraction of Products of Conception, Low, Open Approach (ICD-10-PCS; principal; 2017-02-17)
DX: O44.33 Partial placenta previa with hemorrhage, third trimester (principal); O60.14X0 Preterm labor third trimester with preterm delivery third trimester, not applicable or unspecified; O90.81 Anemia of the puerperium; Z3A.32 32 weeks gestation of pregnancy; Z37.0 Single live birth
CPT/HCPCS: J0690; J2210; J2274; J2370; J2405; J2590; J3010; P9041

== ENCOUNTER → 2018-07-31 | Outpatient (CLI) | payer OTHER | LOC: FIMAGING 08:49 | PROVIDERS: ATTEND Family Medicine | DX: E04.1 Nontoxic single thyroid nodule (principal); R59.0 Localized enlarged lymph nodes ==

== ENCOUNTER → 2018-09-18 | Outpatient (CLI) | payer OTHER | LOC: FIMAGING 07:03 | PROVIDERS: ATTEND Family Medicine | DX: Z09 Encounter for follow-up examination after completed treatment for conditions other than malignant neoplasm (principal); E01.0 Iodine-deficiency related diffuse (endemic) goiter; R59.9 Enlarged lymph nodes, unspecified ==